=== PATIENT | female | born 1950 | race Caucasian/White ===

== ENCOUNTER 2016-10-18 13:57 | Inpatient (IN) | payer OTHER ==
[~2016-10-18] VITALS: Ht 166.4 cm; Wt 79.6 kg
--- NOTE | ~2016-10-18 | OR ---
PATIENT'S NAME: DORIE VALENTIN [facility] AGE: 66 Y [address] ROOM: [place] [id number] [place] [facility] [place]: 10[place]19/[place] OR/Procedure Report DISCHARGE DATE: FAMILY PHYSICIAN: Krzysztof Hdez MD ATTENDING PHYSICIAN: REESE CARD SURGEON: Reese Card MD LINEN GRADER: Vinay Leggett MD. DATE OF PROCEDURE: 10/19/2016 PREOPERATIVE DIAGNOSES: 1. Left renal mass. 2. Atrophic left kidney. POSTOPERATIVE DIAGNOSES: 1. Left renal mass. 2. Atrophic left kidney. OPERATIVE PROCEDURE: Left hand assisted laparoscopic radical nephrectomy. INDICATIONS FOR PROCEDURE: The patient is a pleasant 66-year-old female with history of a left renal mass in an atrophic left kidney. She was explained the risks, benefits, indications, and alternatives to the above procedure and wished to proceed and consented freely. ANESTHESIA: General. DESCRIPTION OF OPERATION: The patient brought back to the operating room, where she was placed on the operating room table in the supine position. A surgical time-out was called where patient identification, surgical site, and procedure was then verified. We also did verify that the patient received an IV cephalosporin antibiotic within an hour of beginning the procedure. The patient then underwent successful administration of general anesthesia. We then placed a 16-German Chandra catheter easily into the patient's urinary bladder and this was placed to gravity drainage. The patient was then carefully repositioned in the modified left flank position. With all bony prominences were padded appropriately. Her abdomen was then prepped and draped in the usual sterile fashion. I then began by making a periumbilical incision and deepened this incision until I identified the rectus fascia. I was then able to dissect down through the rectus fascia and entered the peritoneum sharply. There was no injury to internal structures upon entry into her abdominal cavity. I then placed a GelPort assist device in this area and insufflated the abdomen. I placed a 12 mm trocar just lateral to her umbilicus and a 5 mm trocar in the left epigastrium. These trocars were placed atraumatically. I then carefully surveyed the abdomen and there was no gross abnormalities noted on initial inspection. I then began by mobilizing [facility]GE[facility] 66 Y [address] ROOM: [id number] [place], [place] [id number] [place] [facility] [place]: 10/19/2016 OR/Procedure Report DISCHARGE DATE: FAMILY PHYSICIAN: Krzysztof Hdez MD ATTENDING PHYSICIAN: REESE CARD the peritoneum lateral to the descending colon. The descending colon was then swept medially. I continued in this plane until I was able to identify the ureter. I did spare the gonadal vessels and continued dissecting along the psoas muscle and along the posterior aspect of the kidney. I continued in this plane until I was able to identify the renal hilum. The renal artery and vein was then divided with a laparoscopic vascular stapler. Once I had completely divided the hilum, I inspected for hemostasis, which was excellent. I then freed up the kidney laterally and along the superior aspect and this was an adrenal sparing approach. Once I had completely mobilized the kidney, I then divided the ureter between two Weck clips. I then reinspected for hemostasis, which was excellent. I then removed the kidney through the hand assist port site and this was sent off for pathologic analysis. The 12 mm port site was then closed with a Avinash-Diana closing device and heavy Vicryl suture. The ports had been removed and then we closed the rectus fascia in a running fashion with 0 looped PDS suture. The subcutaneous area was then reapproximated with a Vicryl suture and then all wounds had been irrigated and then infiltrated with 0.25% Marcaine local anesthetic. The skin incisions were closed with subcuticular 4-0 Monocryl suture. The wounds were then covered with Dermabond. The patient was then taken out of the lateral position where she was then extubated without event, transferred to the recovery bed and transported to the recovery room in good condition. The patient did tolerate the procedure very well. COMPLICATIONS: None. ESTIMATED BLOOD LOSS: 25 mL. DRAINS: Indwelling Chandra catheter to gravity drainage. FOLLOWUP PLAN: We will plan to admit the patient overnight for observation with likely discharge home on postoperative day #1 or day #2 depending on how she is doing. REESE CARD MD /modl /[id number] CC: Krzysztof Hdez MD d: 10/19/16 1313 t: 10/28/16 1918, OPERATIVE SUMMARY
[2016-10-18] MEDS ORDERED: HYZAAR 100-12.1 EACH PO (14:42)
[2016-10-18] MEDS ORDERED: OMEPRAZOLE40 MG PO (14:43)
[2016-10-18] MEDS ORDERED: ALLEGRA-D 12 HR1 TAB PO (14:44)
--- NOTE | 2016-10-19 15:55 | NUR ---
Significant Event: Patient up to floor from PACU at 1130. Up to chair after first set of vitals obtained due to patient having abdominal/gas discomfort in bed. Patient able to move from bed to chair without problems and has felt better since getting up to chair. Patient has been sleepy most of the afternoon but also did have a total of 175 mcg of fentanyl in recovery. Oxygen was on 2 liters per nasal cannula on arrival to floor but has been decreased down to 1 liter. Nurse has not tried patient on room air yet due to her being sleepy. Patient has been up and ambulated in the muñoz times one and tolerated fair. Patient does need to walk a few more times tonight per orders. Patient instructed on I.S. by virtual nurse. Joshynpayton given times 2--once in recovery room at 0953 and then on floor at 1430. Patient ambulated after nucynta had had time to work. Patient nauseous after walk, but more belching she stated than anything. After she sat back down some of that subsided but patient was going to try some sprite or something and see if that would help. Urine output at [address] Leggett regarding low output and he was ok with this for now. He also said that overnight we do not need to call with low urine output. He said just to chart nightshift urine output in the progress notes and let day shift know the amount also. Postop vitals are finished at 1830 and then patient will go to every 4 hours. IV fluids are not to be discontinued until tomorrow and only then if patient is taking in oral fluids ok. Orders also say to remove giraldo catheter at 0600 on 10/20/16. Follow up: Continue to monitor.
--- NOTE | 2016-10-20 03:04 | NUR ---
SIGNIFICANT EVENT: Alert & oriented. Patient is post op day 1 - L) hand assist nephrectomy. Ambulate in muñoz x1 this shift. Hypertensive at times - 134 to 156/70 to 84. Other VSS. Titrated to RA this shift. Nucynta x3 - last at 0245. Chandra draining light yellow urine - 1347 out. Clears most of night - did have 1/2 of a turkey sandwich, no n/v. Midline incision with glue and 2 lap sites. Pleasant and cooperative with cares.
[2016-10-20 05:09] LABS: BASOPHIL % 0.2 %; EOSINOPHIL # 0.1 K/uL (0.0-0.5); EOSINOPHIL % 0.6 %; HEMATOCRIT 39.2 % (33.0-46.0); HEMOGLOBIN 12.9 g/dL (10.0-15.0); IMMATURE GRANULOCYTE % 0.3 %; LYMPHOCYTE # 2.2 K/uL (0.8-4.0); LYMPHOCYTE % 24.2 %; MCH 28.8 pg (27.0-34.0); MCHC 32.9 gm/dL (32.0-36.5); MCV 87.5 fl (83.0-98.0); MONOCYTE # 0.7 K/uL (0.0-1.0); MONOCYTE % 8.3 %; MPV 10.1 fl (9.4-12.4); NEUTROPHIL # (ANC) 5.9 K/uL (1.8-7.8); NEUTROPHIL % 66.4 %; NRBC % 0 /100WBC (0-0.00); PLATELET COUNT 249 K/uL (150-450); RBC 4.48 M/uL (3.50-5.50); RDW-CV 13.5 % (11.9-14.6); WBC 8.9 K/uL (4.0-11.0)
[2016-10-20 05:23] LABS: ANION GAP 10.3 (10.0-19.0); BLOOD UREA NITROGEN 10 mg/dL (6-24); CHLORIDE 108 mMol/L (96-110); CO2 26 mMol/L (22-32); CREATININE 0.8 mg/dL (0.5-1.1); ESTIMATED GFR (MDRD EQUATION) > 60; SODIUM 140 mMol/L (135-145)
[2016-10-20 05:28] LABS: POTASSIUM 4.3 mMol/L (3.7-5.1)
[2016-10-20] MEDS ORDERED: NORCO 5-325 TA1 EACH PO (09:16)
--- NOTE | 2016-10-20 12:11 | NUR ---
Met with patient at bedside today. Introduced myself and explained the role of the CM department. Patient lives at home with her spouse. They both are retired. She states that she is feeling quite well and is ready for discharge. She would like to discharge today and based on doctors notes she likely will. Per patient she does not have any needs at discharge. Will continue to follow while here and offer supports as needed. Will likley discharge today with no additional needs.
--- NOTE | 2016-10-20 12:30 | NUR ---
D: ORDERS RECEIVED FOR THE PATIENT TO BE DISCHARGED TO HOME TODAY. I: DISMISSAL INSTRUCTIONS WERE PREPARED AND REVIEWED WITH THE PATIENT AND HER VIRTUALLY. THE FOLLOWING INFORMATION WAS DISCUSSED INCLUDING BETH TEACHING SHEETS PROVIDED: DISCHARGE INSTRUCTIONS FOR NEPHRECTOMY, WHAT IS KIDNEY (RENAL) CANCER, NUCYNTA, AND PREVENTING DVT. UPDATED PATIENT MEDICATION LIST TO SHOW ALLERGY TO [facility]CO PATIENT REPORTS RASH WHEN TAKING CODEINE. REVIEWED FOLLOW UP APPOINTMENT WITH DR. SALGADO AND THAT SHE MAY METAL DRAWER A PRESCRIPTION FOR NUCYNTA PAIN MEDICATION TODAY AFTER DISCHARGE AT DR. SALGADO OFFICE. R: THE PATIENT AND HER BOTH VERBALIZED UNDERSTANDING OF THE DISMISSAL EDUCATION AT THE TIME OF TEACHING WITH NO FURTHER QUESTIONS. P: THE ABOVE INFORMATION WAS SHARED WITH THE PRIMARY NURSE AND CHARGE NURSE THAT THE PATIENT DISMISSAL EDUCATION WAS COMPLETED. THE PATIENT IS READY FOR DISCHARGE TO THE FRONT DOOR VIA WHEEL CHAIR BY NURSING STAFF.
--- NOTE | 2016-10-25 14:46 | NUR ---
Post hospitalization follow up call made to patient. Patient reports that she is doing well. Has no questions regarding her medications or her follow up appointment. Patient reports that all the staff that cared for her was "extremely kind and nice". She voiced two concerns. First she felt that there were too many people involved in her care, she did not have the same nurse or CLAIMS SERVICE ADJUSTOR each day, and felt that she was interrupted "multiple times" by the telehealth nurse. She also had a concern that she was expected to sign her discharge instructions even though she was taking an "opoid". No one was with her from her family to hear the instructions.
== END 2016-10-20 15:05 | disposition disaster alternative care site (69) | DRG 661 ==
LOC: GSIP 13:57 → GPOC 14:00 → GMSU 10-19 05:09
PROVIDERS: ADMIT Urology
PROC: 0TB14ZZ Excision of Left Kidney, Percutaneous Endoscopic Approach (ICD-10-PCS; principal; 2016-10-19)
DX: N28.89 Other specified disorders of kidney and ureter (principal); I10 Essential (primary) hypertension; N26.1 Atrophy of kidney (terminal); K21.9 Gastro-esophageal reflux disease without esophagitis; Z86.010 Personal history of colon polyps
CPT/HCPCS: J0690; J1100; J2405; J2550; J3010; J3360; J7030